=== PATIENT | female | born 1960 | race Caucasian/White ===

== ENCOUNTER 2018-07-25 07:01 | Emergency (ER) | payer BC ==
--- NOTE | 2018-07-25 07:27 | UC ---
Dizzy HPI HPI Summary: 58 yo female awoke about 1 AM to go to the bathroom. Sat up and fell over to the right (felt like she was pulled down by a magnet) Slowly sat up and unsteadily walked to the bathroom went back to bed, laid down and felt better and went to sleep similar symptoms occurred around 6 AM drand some orange juice and laid down This time when she laid down she had vertigo and vomitng x 1` no [place] no ear pain no ringing or roaring in ears no URI symptoms no diarrhea no black or tarry stools feels like she is on a rocking boat - History Of Current Complaint Chief Complaint: UCDizziness Stated Complaint: DIZZY Time Seen by Provider: 07/25/18 07:12 Hx Obtained From: Patient Onset/Duration: Sudden Onset, Lasting Hours Severity Initially: Moderate Severity Currently: Mild Pain Intensity: 0 Pain Scale Used: 0-10 Numeric Character: Room Spinning, Dizzy Aggravating Factor(s): Position Change, Change In Head Position Alleviating Factor(s): Other - changing position slowly Associated Signs And Symptoms: Positive: Nausea, Vomiting, Unsteady Gait. Negative: Diaphoresis, Tinnitus, Chest Pain, SOB, Palpitations, Visual Changes, Decreased Oral Intake, Change In Medication, Change In Diet, OTC Medications - Allergies/Home Medications Allergies/Adverse Reactions: Allergies Allergy/AdvReac Type Severity Reaction Status Date / Time azithromycin Allergy Rash Verified 07/25/18 07:09 Home Medications: Home Medications Vitamin E 100 unit PO DAILY 07/25/18 [History Confirmed 07/25/18] PMH/Surg Hx/FS Hx/Imm Hx Previously Healthy: Yes - Surgical History Surgical History: Yes Surgery Procedure, Year, and Place: wisdom teeth extraction - Family History Known Family History: Positive: Hypertension - Social History Alcohol Use: Weekly Substance Use Type: None Smoking Status (MU): Never Smoked Tobacco Review of Systems All Other Systems Reviewed And Are Negative: Yes Constitutional: Positive: Fatigue Skin: Positive: Negative Eyes: Positive: Negative ENT: Positive: Negative Respiratory: Positive: Negative Cardiovascular: Positive: Negative Gastrointestinal: Positive: Vomiting, Nausea Genitourinary: Positive: Negative Motor: Positive: Negative Neurovascular: Positive: Negative Musculoskeletal: Positive: Negative Neurological: Positive: Other - vertigo/disequilibrium Psychological: Positive: Negative Physical Exam Triage Information Reviewed: Yes Appearance: Well-Appearing Vital Signs: Initial Vital Signs Temp 97.1 F 07/25/18 07:06 Pulse 70 07/25/18 07:06 Resp 18 07/25/18 07:06 BP 159/90 07/25/18 07:06 Pulse Ox 98 07/25/18 07:06 Vital Signs Reviewed: Yes Eyes: Positive: Conjunctiva Clear, Other: - eomi/perrl, fundi benign ENT: Positive: Hearing grossly normal, TMs normal, Uvula midline. Negative: Nasal congestion, Nasal drainage, Tonsillar swelling, Tonsillar exudate, Trismus , Muffled voice, Hoarse voice, Dental tenderness, Sinus tenderness Neck: Positive: Supple, Nontender, No Lymphadenopathy Respiratory: Positive: Lungs clear, Normal breath sounds, No respiratory distress, No accessory muscle use Cardiovascular: Positive: RRR, No Murmur Abdomen Description: Positive: Nontender, No Organomegaly, Soft Bowel Sounds: Positive: Present Musculoskeletal: Positive: ROM Intact, No Edema Neurological: Positive: Alert, Muscle Tone Normal Psychological: Positive: Normal Response To Family Skin Exam: Normal Re-Evaluation - Re-Evaluation First Eval Re-Evaluation Time: 09:15 Change: Improved Comment: decreased dizziness Dizzy Course/Dx - Differential Dx/Diagnosis Provider Diagnosis: BPPV (benign paroxysmal positional vertigo) Discharge - Sign-Out/Discharge Documenting (check all that apply): Patient Departure All imaging exams completed and their final reports reviewed: Yes - Discharge Plan Condition: Stable Disposition: HOME Prescriptions: Meclizine TAB* [Antivert 12.5 TAB*] 12.5 - 25 mg PO QID PRN #32 tab PRN Reason: Dizziness Patient Education Materials: Vertigo (ED) Forms: *Work Release Referrals: Hola Miranda MD [Primary Care Provider] - As Soon As Possible Additional Instructions: change positions slowly don't drive until better - Billing Disposition and Condition Condition: STABLE Disposition: Home
[2018-07-25] MEDS ORDERED: Meclizine TAB* 12.5 MG PO ONE (07:33)
[2018-07-25 07:48] VITALS: BP 161/93
[2018-07-25 12:53] LABS: ABS Basophils 0 10^3/ul (0-0.2); ABS Eosinophils 0 10^3/ul (0-0.6); ABS Lymphocytes 1.3 10^3/ul (1.0-4.8); ABS Monocytes 0.5 10^3/ul (0-0.8); ABS Neutrophils 12.4 10^3/ul (1.5-7.7); ABS Nucleated RBC 0 10^3/ul; Eosinophil % 0.2 %; Hematocrit 41 % (33-41); Hemoglobin 13.9 g/dL (12.0-16.0); Lymphocyte % 9.4 %; Mean Corpuscular HGB Conc 34 g/dL (31-36); Mean Corpuscular Hemoglobin 28 pg (27-31); Mean Corpuscular Volume 84 fL (80-97); Mean Platelet Volume 8.6 fL (7.4-10.4); Nucleated Red Blood Cells % 0.1; Platelet Count 266 10^3/uL (150-450); Red Blood Count 4.94 10^6 /uL (3.70-4.87); Red Cell Distribution Width 14 % (10.5-15); White Blood Count 14.3 10^3/uL (3.5-10.8)
[2018-07-25 13:08] LABS: BUN/Creatinine Ratio 26.6 (8-20); Calcium 9.8 mg/dL (8.6-10.3); EGFR African American 114.9 (>60); Potassium 4.1 mmol/L (3.5-5.0)
--- NOTE | 2018-07-26 08:45 | UC ---
- Progress Note Progress Note: REviewed blood work and notes from yesterday as available. WBC 14.3k and gluc 109mg / dl, likely inflamm but important to f/u pcp, this week of possible re results review and recheck. To ED if worse or new issues. No drive or operate heavy machinery until back to normal. RN to call pt. Course/Dx - Diagnoses Provider Diagnoses: BPPV (benign paroxysmal positional vertigo) Discharge - Sign-Out/Discharge Documenting (check all that apply): Post-Discharge Follow Up All imaging exams completed and their final reports reviewed: Yes - Discharge Plan Condition: Stable Disposition: HOME Prescriptions: Meclizine TAB* [Antivert 12.5 TAB*] 12.5 - 25 mg PO QID PRN #32 tab PRN Reason: Dizziness Patient Education Materials: Vertigo (ED) Forms: *Work Release Referrals: Hola Miranda MD [Primary Care Provider] - As Soon As Possible Additional Instructions: change positions slowly don't drive until better - Billing Disposition and Condition Condition: STABLE Disposition: Home
== END 2018-07-25 09:33 | disposition home or self-care (01) ==
LOC: UCEAST 07:01
DX: H81.10 Benign paroxysmal vertigo, unspecified ear (principal); D72.829 Elevated white blood cell count, unspecified; R73.9 Hyperglycemia, unspecified; R11.2 Nausea with vomiting, unspecified; R26.81 Unsteadiness on feet; R53.83 Other fatigue; Z88.1 Allergy status to other antibiotic agents
CPT/HCPCS: 36415; 70450; 80048; 85025; 99212; A9270-GY; G0463